=== PATIENT | female | born 1995 | race Hispanic/Latino ===

== ENCOUNTER 2021-11-02 20:07 | Day surgery (SDC) | payer MEDICAID, OTHER ==
[2021-11-02] MEDS ORDERED: hydrALAZINE 20 MG/ML VIAL SLOW IVP PRN (21:07)
[2021-11-02 21:16] VITALS: BMI 38.2
== END 2021-11-02 22:15 | disposition home or self-care (01) ==
LOC: CSHLD/OP 20:07
PROVIDERS: ATTEND Obstetrics & Gynecology
DX: O24.419 Gestational diabetes mellitus in pregnancy, unspecified control (principal); Z3A.25 25 weeks gestation of pregnancy
CPT/HCPCS: 99282